=== PATIENT | male | born 1955 | race African-American/Black ===

== ENCOUNTER 2016-08-13 20:21 | Observation (INO) | payer SELFPAY ==
[2016-08-13] MEDS ORDERED: ASPIRIN PO ONE (21:15)
--- NOTE | 2016-08-13 21:19 | DR.GENAD ---
HPI - PCP Primary Care Physician: Edgard HUNT - Complaint/Symptoms Chief Complaint Doctors Comments: Patient states he had had elevated blood pressure this evening with BP 190/110 by his blood pressure machine at home and he repeated it and it was 187/100 just before coming to the emergency room. He has been having left sided chest tightness and discomfort all week and left arm pain that he thought was due to arthritis. He denies cold, cough, fever, chills , nausea or vomiting. States he is a patient of Alexandria Hunt and he is taking Norvasc 10mg for his blood pressure. He denies tobacco or drug usage but he drinks a beer and takes a shot daily at times. Chief Complaint:: HIGH BLOOD PRESSURE, LEG NUMB, CHILLS, SORE ACROSS TOP OF CHEST Self Treatment fo Chief Complaint: HOME BP MEDS - Nurses notes reviewed Nurses Notes Review: Yes - Source History Provided: Patient - Mode of Arrival Mode of Arrival: Ambulatory - Timing Onset of Chief Complaint: 08/13/16 Came on: Gradually - Duration Duration: Constant How lon Duration: Days - Location Location: left sided chest discomfort - Severity Severity: Mild - Modifying Factors Worsens:: nothing Improves:: nothing PMH - PMH Past Medical History: Yes Past Medical History: Arthritis, Hypertension Past Surgical History: No Surgical History: No History - Family History History of Family Medical Conditions: Yes Family Medical History: Diabetes Mellitus, Hypertension - Social History Does patient currently use any type of tobacco product: No Have you used tobacco products in the last 12 months: No Type of Tobacco Use: Cigarettes How many years tobacco product used: 20 Does any household member use tobacco: No Alcohol Use: Occasionally Do you use any recreational Drugs:: No Lives With: Alone - infectious screening In the last 2 months have you had wt loss of >10#?: NO Have you had fever, night sweats or hemotysis?: No Have you traveled outside the country in the last 6 months?: No Isolation: Standard ROS - Review of Systems Constitutional: No Symptoms Reported Eyes: No Symptoms Reported ENTM: No Symptoms Reported. negative: See HPI, Ear Pain, Ear Discharge, Pulling on Ears, Hearing Loss, Nose Pain, Nose Discharge, Epistaxis, Nose Congestion, Mouth Pain, Mouth Swelling, Loose Teeth, Drooling, Throat Pain, Throat Swelling, Ear Foreign Body Respiratoy: No Symptoms Reported Cardiovascular: No Symptoms Reported, Chest Pain. negative: See HPI, Edema, Palpitations, Syncope, Cyanosis, Skin Mottling, Other Gastrointestinal/Abdominal: No Symptoms Reported. negative: See HPI, Abdominal Pain, Constipation, Diarrhea, Nausea, Vomiting, Food Intolerance, Other Genitourinary: No Symptoms Reported. negative: See HPI, Discharge, Dysuria, Frequency, Hematuria, Pain, Bleeding, Other Neurological: No Symptoms Reported Musculoskeletal: No Symptoms Reported Integumentary: No Symptoms Reported Hematologic/Lymphatic: No Symptoms Reported Endocrine: No Symptoms Reported Psychiatric: No Symptoms Reported PE - Vital Signs Vitals: Temperature 98.2 F Pulse Rate 78 Respiratory Rate 20 Blood Pressure [Right Arm] 131/70 Blood Pressure [Standing] 160/85 Blood Pressure [Sitting] 166/86 Blood Pressure [Lying] 165/88 Blood Pressure 157/80 O2 Sat by Pulse Oximetry 99 - General Limitations: No Limitations General Appearance: Alert, In No Apparent Distress - Head Head Exam: Normal Inspection, Atraumatic, Normocephalic - Eyes Eye exam: Normal Appearance, PERRL, EOMI. negative: Scleral Icterus, Conjunctival Injection, Nystagmus, Miosis, Mydrasis, Periorbital Swelling, Periorbital Tenderness, Other - ENT ENT Exam: Normal Exam, Normal Oropharynx, Normal External Ear Exam, Mucous Membranes Moist, TM's Normal Bilaterally External Ear Exam: Normal External Inspection TM/Canal Exam: Bilateral Normal Nose Exam: Normal Nose Exam Mouth Exam: Normal Inspection Throat Exam: Normal Inspection - Neck Neck Exam: Normal Inspection, Full ROM, Trachea Midline. negative: Tenderness, Meningismus, Lymphadenopathy, Thyromegaly, Other - Chest Chest Inspection: Normal Inspection, Symmetric Chest Wall Rise - Respiratory Respiratory Exam: Normal Lung Sounds Bilat Respiratory Exam: Bilateral Clear to Auscultation - Cardiovascular Cardiovascular Exam: Regular Rate, Normal Rhythm - Abdominal Exam Abdominal Exam: Normal Inspection, Normal Bowel Sounds, Soft. negative: Distention, Tenderness, Guarding, Rebound, Rigidity, Dimnished Bowel Sounds, Hyperactive Bowel Sounds, Hypoactive Bowel Sounds, Organomegaly, Trauma, Incision, Ascites, Mass, Bruit, Pulsatile Mass, Hernia, Other Abdominal Tenderness: negative: RUQ, RLQ, LUQ, LLQ, Epigastrium, Suprapubic, Diffuse, Mild, Moderate, Severe, Other - Extremities Extremities Exam: Normal Inspection, Full ROM, Normal Capillary Refill. negative: Tenderness, Edema, Joint Swelling, Calf Tenderness, Other - Back Back Exam: Normal Inspection, Full ROM. negative: Tenderness, (R) CVA Tenderness, (L) CVA Tenderness, Muscle Spasm, Paraspinal Tenderness, Vertebral Tenderness, Rashes, (R) Sciatic Notch Tenderness, (L) Sciatic Notch Tendern, (R ) Straight Leg Raise, (L) Straight Leg Raise, Other - Neurologic Neurological Exam: Alert, Oriented X3, CN II-XII Intact, Normal Gait, Reflexes Normal - Psychiatric Psychiatric Exam: Normal Affect, Normal Mood - Skin Skin Exam: Warm, Dry, Intact, Normal Color. negative: Rash, Cyanosis, Diaphoresis, Erythema, Pallor, Mottled, Other Course - Reevaluation 1st: Improved - Consultation Called: :16 Call Returned: :16 (Dr. Ritter to admit) - Education/Counseling Education/Counseling: Patient, Family Educated On: Treatment, Diagnosis, Needs for Follow Up ROR - Labs Reviewed Laboratory Results Reviewed?: Yes (all labs and x-ray results reviewed and discussed with patient) Result Diagrams: 08/13/16 21:25 08/13/16 21:25 Laboratory: WBC 5.2 X10^3/uL (3.6-10.0) 08/13/16 21: RBC 4.65 X10^6/uL (4.7-6.0) L 08/13/16 21:25 Hgb 12.8 g/dL (13.5-18.0) L 08/13/16 21:25 Hct 39.3 % (42.0-54.0) L 08/13/16 21:25 MCV 84.4 fL (80.0-100.0) 08/13/16 21:25 MCH 27.6 pg (27.0-34.0) 08/13/16 21: MCHC 32.7 g/dL (33.0-35.0) L 08/13/16 21:25 RDW 15.1 % (11.6-16.5) 08/13/16 21:25 Plt Count 244 X10^3/uL (150.0-450.0) 08/13/16 21:25 MPV 8.6 fL (7.4-11.0) 08/13/16 21:25 Neut % 55.4 % (42.0-75.0) 08/13/16 21:25 Lymph % 27.8 % (21.0-51.0) 08/13/16 21:25 [place] % 9.3 % (0.0-13.0) 08/13/16 21:25 Eos % 6.6 % (0.9-2.9) H 08/13/16 21:25 Baso % 0.9 % (0.2-1.0) 08/13/16 21:25 Neut # 2.9 x10^3/uL (2.2-4.8) 08/13/16 21:25 Lymph # 1.4 X10^3/uL (1.3-2.9) 08/13/16 21:25 [place] # 0.5 x10^3/uL (0.3-0.8) 08/13/16 21:25 Eos # 0.3 x10^3/uL (0.0-0.2) H 08/13/16 21:25 Baso # 0.0 X10^3/uL (0.0-0.1) 08/13/16 21:25 Absolute Nucleated RBC 0.0 /100WBC 08/13/16 21:25 INR Target Range - 08/13/16 21:25 INR 0.91 (0.8-1.3) 08/13/16 21:25 PTT 25.4 SECONDS (22.9-36.5) 08/13/16 21:25 PTT Comment - 08/13/16 21:25 D-Dimer 124 ng/mL (0-400) 08/13/16 21:25 Sodium 141 mmol/L (136-145) 08/13/16 21:25 Corrected Sodium TNP 08/13/16 21:25 Potassium 4.3 mmol/L (3.5-5.1) 08/13/16 21:25 Chloride 103 mmol/L (98-107) 08/13/16 21:25 Carbon Dioxide 26.1 mmol/L (21-32) 08/13/16 21:25 BUN 13 mg/dL (7-18) 08/13/16 21:25 Creatinine 1.07 mg/dL (0.70-1.30) 08/13/16 21:25 Est GFR (MDRD) Af Amer > 60 (>60) 08/13/16 21:25 Est GFR (MDRD) Non-Af > 60 (>60) 08/13/16 21:25 Glucose 100 mg/dL (65-99) H 08/13/16 21:25 Calcium 8.9 mg/dL (8.5-10.1) 08/13/16 21:25 Corrected Calcium TNP 08/13/16 21:25 Magnesium 2.1 mg/dL (1.7-2.9) 08/13/16 21:25 Total Bilirubin 0.30 mg/dL (0.2-1.0) 08/13/16 21:25 AST 25 Units/L (15-37) 08/13/16 21:25 ALT 35 Units/L (12-78) 08/13/16 21:25 Alkaline Phosphatase 81 Units/L (46-116) 08/13/16 21:25 Creatine Kinase 341 Units/L (39-308) H 08/13/16 21:25 CK-MB (CK-2) 2.1 ng/mL (0-4.0) 08/13/16 21:25 CK/CKMB % Calc 0.6 % (<4) 08/13/16 21:25 Troponin I < 0.02 ng/mL (0-1.5) 08/13/16 21:25 Total Protein 8.4 g/dL (6.4-8.2) H 08/13/16 21:25 Albumin 4.0 g/dL (3.4-5.0) 08/13/16 21:25 Globulin 4.4 g/dL (2.5-4.5) 08/13/16 21:25 Albumin/Globulin Ratio 0.9 Ratio (1.1-2.1) L 08/13/16 21:25 - XRAY XRAY Interpreted by: Radiologist (CXR: No acute cardiopulmonary disease) - EKG Rate: 71 [place]: Normal Rhythm: NSR ST: Ant, Ischemia, Nonsp - Diagnosis Discharge Problem: Chest pain, rule out acute myocardial infarction, Accelerated hypertension - Discharge Plan Disposition: ADMITTED INPATIENT Condition: Stable - Follow ups/Referrals Follow ups/Referrals: AMILCAR HUNT [Primary Care Provider] - 3 days - Instructions
[2016-08-13] MEDS ORDERED: ASPIRIN ONE (21:30)
[2016-08-13 21:34] LABS: BASOPHILS % (AUTO) 0.9 % (0.2-1.0); EOSINOPHILS # (AUTO) 0.3 x10^3/uL (0.0-0.2); EOSINOPHILS % (AUTO) 6.6 % (0.9-2.9); HEMATOCRIT 39.3 % (42.0-54.0); HEMOGLOBIN 12.8 g/dL (13.5-18.0); LYMPHOCYTES # (AUTO) 1.4 X10^3/uL (1.3-2.9); LYMPHOCYTES % (AUTO) 27.8 % (21.0-51.0); MEAN CORPUSCULAR HEMOGLOBIN 27.6 pg (27.0-34.0); MEAN CORPUSCULAR HGB CONC 32.7 g/dL (33.0-35.0); MEAN CORPUSCULAR VOLUME 84.4 fL (80.0-100.0); MEAN PLATELET VOLUME 8.6 fL (7.4-11.0); MONOCYTES # (AUTO) 0.5 x10^3/uL (0.3-0.8); MONOCYTES % (AUTO) 9.3 % (0.0-13.0); NEUTROPHILS # (AUTO) 2.9 x10^3/uL (2.2-4.8); NEUTROPHILS % (AUTO) 55.4 % (42.0-75.0); PLATELET COUNT 244 X10^3/uL (150.0-450.0); RED BLOOD COUNT 4.65 X10^6/uL (4.7-6.0); RED CELL DISTRIBUTION WIDTH 15.1 % (11.6-16.5); WHITE BLOOD COUNT 5.2 X10^3/uL (3.6-10.0)
[2016-08-13 21:52] LABS: BLOOD UREA NITROGEN 13 mg/dL (7-18); CALCIUM 8.9 mg/dL (8.5-10.1); CARBON DIOXIDE 26.1 mmol/L (21-32); CHLORIDE 103 mmol/L (98-107); CREATININE 1.07 mg/dL (0.70-1.30); GLUCOSE 100 mg/dL (65-99); SODIUM 141 mmol/L (136-145); TROPONIN I < 0.02 ng/mL (0-1.5); eGFR BLACK RACES > 60 (>60); eGFR NON BLACK RACES > 60 (>60)
[2016-08-13 21:56] LABS: ALANINE AMINOTRANSFERASE 35 Units/L (12-78); ALKALINE PHOSPHATASE 81 Units/L (46-116); ASPARTATE AMINO TRANSFERASE 25 Units/L (15-37); CKMB % 0.6 % (<4); CREATINE KINASE 341 Units/L (39-308); CREATINE KINASE MB 2.1 ng/mL (0-4.0); MAGNESIUM 2.1 mg/dL (1.7-2.9); TOTAL PROTEIN 8.4 g/dL (6.4-8.2)
--- NOTE | 2016-08-13 21:58 | RAD ---
Chest, one view Indication: Hypertension Comparison: 06/18/2016 Findings: The cardiac silhouette is unremarkable. The lungs are clear, without focal infiltrates or large effusion. The bony thorax is unremarkable. Impression: No acute cardiopulmonary disease. Reported By:
[2016-08-13 22:00] LABS: D DIMER 124 ng/mL (0-400)
[2016-08-13] MEDS ORDERED: MORPHINE SULFATE INJ 2 MG IVP PRN (22:49)
[2016-08-13] MEDS ORDERED: NITROSTAT SL PRN (22:49)
[2016-08-13 23:56] LABS: CKMB % 0.6 % (<4); CREATINE KINASE 357 Units/L (39-308); TROPONIN I < 0.02 ng/mL (0-1.5)
[2016-08-13 23:57] VITALS: BMI 26.9
[2016-08-14 07:00] LABS: CKMB % 0.7 % (<4); CREATINE KINASE 275 Units/L (39-308); CREATINE KINASE MB 1.9 ng/mL (0-4.0); TROPONIN I < 0.02 ng/mL (0-1.5)
[2016-08-14 08:07] VITALS: BP 136/65
[2016-08-14] MEDS ORDERED: LOVENOX INJ 40 MG SYR SC SCH (09:00)
[2016-08-14] MEDS ORDERED: ASPIRIN PO SCH (09:00)
[2016-08-14] MEDS ORDERED: HYZAAR 50/12.5 MG PO SCH (09:00)
[2016-08-14] MEDS ORDERED: PROTONIX INJ 40 MG VIAL IVP SCH (09:00)
--- NOTE | 2016-08-14 13:07 | DR.CARTERS ---
Short Stay Summary - Short Stay Summary for: Short Stay Summary for Date of:: 08/14/16 - Admission Date Date of Admission: 08/13/16 - Discharge Date Discharge Date: 08/14/16 - Admission Diagnoses (1) Chest pain Status: Acute (2) Chest pain, rule out acute myocardial infarction Status: Acute (3) Accelerated hypertension Status: Acute (4) Hyperglycemia Status: Acute (5) Hypertension Status: Chronic - Hospital Course Hospital Course: DAY ONE OF HOSPITAL STAY, THIS IS A 61 YEAR OLD MALE, WHO IS FOLLOWED BY EFRAIN CARTER. HE PRESENTS TO THE EMERGENCY ROOM WITH COMPLAINTS OF CHEST PAIN. PATIENT REPORTED AN ELEVATED BLOOD PRESSURE OF 190/110 BY HIS BLOOD PRESSURE MACHINE AT HOME. HE REPEATED BLOOD PRESSURE A SHORT TIME LATER AND IT WAS 187/ 100 JUST BEFORE ARRIVAL TO ER. PATIENT REPORTED LEFT SIDED CHEST TIGHTNESS AND DISCOMFORT ALL WEEK AND LEFT ARM PAIN. PATIENT HAS A HISTORY OF ARTHRITIS, WHICH PATIENT CONTRIBUTED TO LEFT ARM PAIN. HE DENIED COUGH, COLD, FEVER, CHILLS, NAUSEA. PATIENT REPORTED A HOME MEDICATION OF NORVASC, WHICH HE REPORTED HE WAS COMPLIANT WITH. LABS AND EKG OBTAINED. CBC WNL EXCEPT: H/H 12.8/39.3. CMP WNL EXCEPT: GLUCOSE 100, TOT PROTEIN 8.4. CARDIAC ENZYMES WNL EXCEPT: CREAT KINASE 341. CHEST XRAY REPORTS NO ACUTE CARDIOPULMONARY DISEASE. EKG: SINUS RHYTHM, RATE 71. PATIENT WAS ADMITTED FOR FURTHER EVALUATION AND TREATMENT. DAY TWO OF HOSPITAL STAY, PATIENT REPORTED HE WAS FEELING BETTER. PATIENT WAS STARTED ON HYZAAR FROM THE ER AND BLOOD PRESSURE WAS 136/65, PULSE 76. PATIENT DENIED CHEST PAIN, SHORTNESS OF BREATH. CARDIAC ENZYMES WNL. EKG: SINUS RHYTHM , RATE 67. WE DISCUSSED FOLLOW UP WITH A IMPORTER EXPORTER FOR FURTHER CARDIAC WORKUP AND PATIENT VOICED UNDERSTANDING. WE PLANNED FOR DISCHARGE. INSTRUCTIONS FOR MEDICATIONS AND FOLLOW UP WERE GIVEN TO PATIENT AND FAMILY, BOTH VOICED UNDERSTANDING. PATIENT RECEIVED PRESCRIPTIONS FOR CRESTOR, ASPIRIN , AND METOPROLOL AND WAS INSTRUCTED TO CONTINUE NORVASC. PATIENT WAS DISCHARGED HOME IN STABLE CONDITION WITH FAMILY. - Discharge Medications Discharge Medications: Amlodipine Besylate [Norvasc] 10 mg PO DAILY 08/14/16 [History] Aspirin [ASPIRIN 325 MG *] 325 mg PO DAILY #30 tab 08/14/16 [Rx] Metoprolol Tartrate [LOPRESSOR 25 MG *] 25 mg PO BID #60 tab 08/14/16 [Rx] Rosuvastatin Calcium [Crestor Tab 10 mg] 10 mg PO HS #30 tab 08/14/16 [Rx] - Discharge Plan Disposition: 01 HOME, SELF-CARE Condition: Stable Prescriptions: Aspirin [ASPIRIN 325 MG *] 325 mg PO DAILY #30 tab Metoprolol Tartrate [LOPRESSOR 25 MG *] 25 mg PO BID #60 tab Rosuvastatin Calcium [Crestor Tab 10 mg] 10 mg PO HS #30 tab - Follow up/Referrals Follow up/Referrals: AMILCAR THOMAS [Nurse Practitioner] - 3 DAYS - Instructions Instructions: Metoprolol extended-release tablets, Form - Blood Pressure Record Sheet, Aspirin and Your Heart, Hypertension, [id number], Aspirin, ASA oral tablets, Rosuvastatin Tablets, Managing Your High Blood Pressure, Chest Pain Observation Additional Instructions: ACTIVITY TOLERATED. DIET TOLERATED. FOLLOW UP WITH EFRAIN CARTER IN 3 DAYS. FOLLOW UP WITH IMPORTER EXPORTER OF CHOICE FOR STRESS TEST.
== END 2016-08-14 11:05 | disposition home or self-care (01) ==
LOC: ER 20:21 → MED/SURG 22:53
PROVIDERS: ADMIT Internal Medicine; ATTEND Internal Medicine
DX: R07.89 Other chest pain (principal); I10 Essential (primary) hypertension; M13.89 Other specified arthritis, multiple sites; R73.09 Other abnormal glucose; M79.602 Pain in left arm; R94.31 Abnormal electrocardiogram [ECG] [EKG]; D64.89 Other specified anemias; R94.4 Abnormal results of kidney function studies
CPT/HCPCS: 36415; 71010; 80053; 82550; 82553; 83735; 84484; 85025; 85378; 85610; 85730; 93005; 94760; 96365; 99284; A4216; A4222; C9113; G0378; J1650